=== PATIENT | male | born 1990 | race African-American/Black ===

== ENCOUNTER 2020-02-11 07:16 | Emergency (ER) | payer OTHER, SELFPAY ==
--- NOTE | ~2020-02-11 | XR_ITS ---
EXAMINATION: XR chest 2V 02/11/2020 07:50 INDICATION: Anxiety. Smoker. PROCEDURE: PA and lateral views of the chest COMPARISON: No prior studies for comparison. FINDINGS: The lungs are clear. The cardiomediastinal silhouette is within normal limits. There are no pleural effusions. There is no pneumothorax suspected. IMPRESSION: 1: NO ACUTE CARDIOPULMONARY DISEASE. Reviewed, dictated and finalized at location A. PACKER
--- NOTE | ~2020-02-11 | CT_ITS ---
EXAMINATION: CT BRAIN W/O DATE: 02/11/2020 07:49 INDICATION: Left-sided numbness TECHNIQUE: Computed tomography (CT) of the head was performed without intravenous contrast. The dose- length product was 605.33 mGy-cm. The mA was adjusted according to patient size. Iterative reconstruc tion technique was employed. COMPARISON: No prior studies for comparison. FINDINGS: Normal brain parenchymal volume for age. Normal slade-white differentiation. No acute intrac ranial hemorrhage, infarction, mass or mass effect. No ventriculomegaly or midline shift. Midline sagittal images demonstrate a normal corpus callosum, c raniovertebral junction and sella turcica. Basilar cisterns are patent. Paranasal sinuses and mastoids are pneumatized. No depressed skull fractures. IMPRESSION: 1. No acute intracranial abnormality. Reviewed, dictated and finalized at location A. HOUSE VAT WORKER
[2020-02-11 07:24] VITALS: BP 156/90; PULSE 82; RESP 18; TEMP 36.2; O2SAT 98
--- NOTE | 2020-02-11 07:33 | ECG_ITS ---
Measurements Intervals [place] Rate: 70 P: 50 MS: 130 QRS: 76 QRSD: 92 T: 22 QT: 372 QTc: 403 Interpretive Statements SINUS RHYTHM ST ELEVATION IN ANTEROLAT/HIGH LAT LEADS- PROBABLY EARLY REPOLARIZATION BORDERLINE ECG Electronically Signed On 02-11-2020 10:58:34 STUDIO COORDINATOR by Isaias Munoz D.O.
--- NOTE | 2020-02-11 07:33 | ED.ANXIETY ---
HPI - Anxiety General Chief Complaint: Anxiety Stated Complaint: Left Side Hurts, Numbness Time Seen by Provider: 02/11/20 07:33 Source: patient Mode of arrival: ambulatory Limitations: no limitations History of Present Illness HPI narrative: Patient is a 29-year-old male with a history of anxiety, depression who presents for evaluation of left-sided numbness. Patient states he was experiencing quite a bit of stress this morning, had decided to come to the emergency department for evaluation when he began to develop left-sided numbness throughout his body while he was driving. He reports the numbness sensation started in his brain and felt like a brain pop. Patient denied any vision changes, nausea, vomiting, difficulty with speech or difficulty with ambulation. He did not pass out. Patient denied any concurrent chest pain or shortness of breath. Patient states he does not have a history of numbness with his anxiety. Patient states he came into the lobby where he became increasingly panicked and then was brought back to the emergency department. Patient states the numbness lasted approximately 20 minutes in the left side of his body and is now completely resolved. He denies any other complaints at this time. Patient does endorse drinking alcohol nightly. Related Data Allergies Allergy/AdvReac Type Severity Reaction Status Date / Time amoxicillin Allergy Unknown Rash Verified 02/11/20 07:34 Review of Systems Review of Systems: Narrative: CONSTITUTIONAL: Denies fever, chills, or sweats. EYES: Denies visual changes, redness, or discharge. ENT: Denies rhinorrhea, congestion, sore throat, or otalgia. CARDIOVASCULAR: Denies chest pain, palpitations, or edema. RESPIRATORY: Denies cough or dyspnea. GASTROINTESTINAL: Denies abdominal pain, nausea, vomiting, or diarrhea. GENITOURINARY: Denies dysuria or hematuria. SKIN: Denies rash or itching. MUSCULOSKELETAL: Denies back pain, joint pain, or myalgia. NEUROLOGIC: Denies current headache, numbness, or weakness. PSYCHIATRIC: Reports anxiety and depression PMFSH Past Medical History Medical History Anxiety Depression Family History Family History (Updated 11/15/13 @ 07:13 by DOCTOR UNKNOWN) Father Family history of mental disorder Mother Family history of mental disorder Depression Social History Social History (Updated 02/11/20 @ 07:39 by Lynne Peterson MD) Smoking status: Never smoker Second hand tobacco smoke exposure: No Alcohol intake: current Substance use: current Substance use type: marijuana Gender identity (if verbalized by the patient): Male Exam Narrative: Exam Narrative: GENERAL: Awake, alert, conversant, anxious HEAD: Normocephalic, atraumatic. EYES: PERRLA and EOMI. ENT: Nares clear, no rhinorrhea or epistaxis. Mucous membranes moist. NECK: Supple. CHEST: No respiratory distress, breathing even and non labored HEART: Regular rate, sinus rhythm ABDOMEN:Non distended, non tender EXTREMITIES: Normal range of motion. No edema. SKIN: Warm, dry, no rash. NEURO:No focal deficits. Alert and oriented x3. Finger to nose intact bilaterally. EOMs intact without nystagmus. No facial droop/asymmetry noted bilaterally. Grimace intact. Intact sensation in face. Hearing intact bilaterally. Shoulder shrug intact. Strength 5/5 bilateral upper extremities. Strength 5/5 bilateral lower extremities. Reflexes 2+ patellar. Heel to marc intact bilaterally. No pronator drift. Ambulatory with a narrow base, steady gait, no ataxia. Course Vital Signs Vital signs: Vital Signs Temperature 36.2 C L 02/11/20 07:24 Pulse Rate 82 02/11/20 07:24 Respiratory Rate 18 02/11/20 07:24 Blood Pressure 156/90 H 02/11/20 07:24 Pulse Oximetry 98 02/11/20 07:24 Temperature 36.2 C L 02/11/20 07:24 Pulse Rate 73 02/11/20 08:46 Respiratory Rate 14 02/11/20 08:46 Blood Pressure 150/90 H
[2020-02-11 07:49] LABS: Basophils Percent Auto 0.6 % (0.2-1.2); Hemoglobin 16.5 g/dL (14.0-18.0); Immature Granulocyte Absolute 0.02 K/mm3 (0.00-0.031); Immature Granulocyte Percent A 0.3 % (0-0.5); Lymphocytes Percent Auto 21.1 % (18.3-44.2); Mean Corpuscular HGB Conc 34.4 g/dl (32-36); Mean Corpuscular Hemoglobin 30.1 pg (26-34); Mean Corpuscular Volume 87.4 fl (80-100); Mean Platelet Volume 11.2 fl (7.4-10.4); Monocytes Absolute Auto 0.5 K/mm3 (0.1-0.6); Monocytes Percent Auto 6.9 % (2.6-8.5); Neutrophils Absolute Auto 5.1 K/mm3 (1.3-6.7); Neutrophils Percent Auto 71.1 % (45.5-73.1); Platelet Count Result 199 k/mm3 (150-375); Red Blood Count 5.49 M/mm3 (4.6-6.20); Red Cell Distribution Width 13.1 % (11.5-14.5); White Blood Count 7.1 K/mm3 (4.5-10.0)
[2020-02-11] MEDS: SODIUM CHLORIDE 0.9% IV 1,000 ML 999 ML IV CONT (07:56)
[2020-02-11 08:00] LABS: INR 0.8
[2020-02-11 08:01] LABS: Partial Thromboplastin Time 25.2 SECONDS (22.3-36.8)
[2020-02-11 08:05] LABS: Anion Gap 13 mmol/L (8-16); Blood Urea Nitrogen 8 mg/dL (9-20); Calcium 9.6 mg/dL (8.4-10.2); Carbon Dioxide 24 mmol/L (22-30); Chloride 104 mmol/L (98-107); Estimated CRCL calculation 135 ml/min; Estimated Glomerular Filt Rate > 60; Glucose 130 mg/dL (75-110); Potassium 3.6 mmol/L (3.4-5.0); Sodium 141 mmol/L (137-145)
[2020-02-11 08:17] LABS: Troponin I < 0.012 ng/mL (0.000-0.034)
[2020-02-11 08:46] VITALS: BP 150/90; PULSE 73; RESP 14; O2SAT 100
[2020-02-11 09:27] VITALS: BP 133/90; PULSE 69; RESP 17; O2SAT 99
== END 2020-02-11 09:29 | disposition home or self-care (01) ==
PROVIDERS: Emergency Provider Emergency Medicine
DX: F41.9 Anxiety disorder, unspecified (principal); R20.2 Paresthesia of skin; R94.31 Abnormal electrocardiogram [ECG] [EKG]
CPT/HCPCS: 36415; 70450; 71046; 80048; 84484; 85025; 85610; 85730; 93005; 96360; 99284; J7030

== ENCOUNTER 2021-01-14 00:18 | Emergency (ER) | payer OTHER, SELFPAY ==
[2021-01-14 00:20] VITALS: BP 159/101; PULSE 100; RESP 20; TEMP 36.7; O2SAT 100
--- NOTE | 2021-01-14 00:41 | ED.ANXIETY ---
HPI - Anxiety General Chief Complaint: Anxiety Stated Complaint: dyspnea x 10 min Time Seen by Provider: 01/14/21 00:36 Source: patient Mode of arrival: ambulatory Limitations: no limitations History of Present Illness HPI narrative: Patient is a 40-year-old male complaining of anxiety attack described as tunnel vision accompanied by trouble breathing started prior to arrival. Patient states that he is feeling better now but still little anxious. Patient states that he has a history of anxiety. Patient denies any suicidal homicidal thoughts. Related Data Allergies Allergy/AdvReac Type Severity Reaction Status Date / Time amoxicillin Allergy Unknown Rash Verified 02/11/20 07:34 Review of Systems Review of Systems: All systems reviewed & are unremarkable except as noted in HPI and below Constitutional: Constitutional: Denies body ache(s), Denies chills, Denies excessive sweating, Denies fatigue, Denies fever(s), Denies headache(s), Denies lethargy, Denies malaise, Denies weakness and Denies weight loss Eyes: Eyes: Denies blurry vision, Denies change in vision and Denies loss of vision ENT: Denies dizziness, Denies ear discharge, Denies headache(s), Denies lip swelling, Denies epistaxis, Denies nasal congestion, Denies neck pain, Denies throat swelling and Denies tongue swelling Cardiovascular: Cardiovascular: Denies chest pain, Denies chest pain at rest, Denies chest pain with activity, Denies diaphoresis, Denies rapid heart rate, Denies edema, Denies irregular heart rhythm, Denies lightheadedness, Denies palpitations, Denies dyspnea and Denies dyspnea on exertion Respiratory: Respiratory: Denies chest congestion, Denies cough, Denies hemoptysis, Denies dyspnea and Denies dyspnea on exertion Gastrointestinal: Gastrointestinal: Denies abdominal pain, Denies melena, Denies hematochezia, Denies diarrhea, Denies nausea, Denies vomiting and Denies hematemesis Musculoskeletal: Musculoskeletal: Denies abnormal gait, Denies deformity, Denies joint swelling, Denies limited range of motion, Denies neck pain and Denies numbness Neurologic: Denies Abnormal speech present, Denies abnormal gait, Denies confusion, Denies dizziness, Denies headache(s), Denies focal weakness, Denies loss of vision, Denies numbness, Denies Other visual disturbances, Denies Sensory deficit (Neuro) and Denies weakness Psychiatric: Psychiatric: Denies confusion, Denies depression, Denies auditory hallucinations, Denies homicidal ideation and Denies suicidal ideation Endocrine: Endocrine: Denies cold intolerance, Denies excessive sweating, Denies fatigue, Denies heat intolerance and Denies palpitations Hematologic/Lymphatic: Hematologic/Lymphatic: Denies easy bleeding and Denies easy bruising Allergic/Immunologic: Allergic/Immunologic: Denies lip swelling, Denies throat swelling and Denies tongue swelling PMFSH Past Medical History Medical History Anxiety Depression Family History Family History Father Family history of mental disorder Mother Family history of mental disorder Depression Social History Social History Smoking status: Never smoker Second hand tobacco smoke exposure: No Alcohol intake: current Substance use: current Substance use type: marijuana Gender identity (if verbalized by the patient): Male Exam Const: General: cooperative, healthy appearing, comfortable, no acute distress, well developed, alert and awake; No confusion Orientation/consciousness: oriented to person, oriented to place, oriented to time, patient oriented x3 and No confusion Limitations: no limitations HENMT: Head: normal to inspection, normocephalic and atraumatic Ears: hearing grossly normal bilaterally, TM normal on the right and TM normal on the left General nose exam: Normal external no
[2021-01-14] MEDS: LORazepam (*CRX) 1 MG TABLET PO (00:53)
[2021-01-14 01:57] VITALS: BP 140/67; PULSE 70; RESP 16; O2SAT 100
== END 2021-01-14 01:58 | disposition home or self-care (01) ==
PROVIDERS: Emergency Provider Emergency Medicine
DX: F41.9 Anxiety disorder, unspecified (principal); F32.9 Major depressive disorder, single episode, unspecified
CPT/HCPCS: 99283; A9270

== ENCOUNTER 2021-01-30 19:30 | Emergency (ER) | payer OTHER, SELFPAY ==
[2021-01-30] VITALS (16 sets, daily range): BP systolic 125–146; BP diastolic 72–106; PULSE 67–85; RESP 12–16; TEMP 36.2–36.6; O2SAT 95–100
--- NOTE | ~2021-01-30 | CT_ITS ---
EXAMINATION: CT brain wo con EXAM DATE: 01/30/2021 20:24 INDICATION: seizure/ syncope. TECHNIQUE: Spiral CT of the head was performed without contrast. Axial, coronal and sagittal images were reviewed. The dose-length product (DLP) for this examination was 605.33 mGy-cm. The exposure w as tailored according to patient size, and iterative reconstruction (ASIR) was used as additional dos e reduction technique. Comparison is made to prior examination from 02/11/2020. FINDINGS: There is no acute intraparenchymal hemorrhage. No evidence of intraparenchymal brain mass lesion. No evidence of acute infarction. There is no mass effect or midline shift. The ventricles are normal in size. There are no extra-axial collections. There are no acute calvarial fractures. T he orbits are unremarkable. Soft tissue is unremarkable. The visualized sinuses and mastoid air anahy ls are well aerated. IMPRESSION: 1. Normal head CT examination. Reviewed, dictated and finalized at location A. TOP SPECIALIST
--- NOTE | ~2021-01-30 | XR_ITS ---
EXAMINATION: XR chest 1V portable EXAM DATE: 01/30/2021 20:13 INDICATION: Syncope, history of seizures. TECHNIQUE: Portable AP frontal chest x-ray was obtained. Comparison is made to prior examination from 02/11/2020. FINDINGS: The lungs are clear. There are no pleural effusions. The cardiomediastinal silhouette is within normal limits. There is no pneumothorax suspected. The bones and soft tissues are unremarkab le. IMPRESSION: No acute cardiopulmonary findings. Reviewed, dictated and finalized at location A. EAU ARCHITECT
--- NOTE | 2021-01-30 19:34 | ECG_ITS ---
Measurements Intervals [place] Rate: 70 P: 54 [place]: 141 QRS: 65 QRSD: 96 T: 31 QT: 395 QTc: 427 Interpretive Statements SINUS RHYTHM ST ELEVATIOIN IN ANTEROLAT/HIGH LAT LEADS- PROBABLY EARLY REPOLIARZATION ABNORMALITY BASELINE ARTIFACT- I, II, III, AVR, AVL, AVF, V1, V4-V6 BORDERLINE ECG Electronically Signed On 01-31-2021 6:53:29 BREWERY PUMPER by Isaias Munoz D.O.
[2021-01-30 20:14] LABS: Basophils Percent Auto 0.4 % (0.2-1.2); Eosinophils Absolute Auto 0.1 K/mm3 (0-0.3); Eosinophils Percent Auto 0.9 % (0-4.4); Hematocrit 43.8 % (42.0-52.0); Hemoglobin 14.9 g/dL (14.0-18.0); Immature Granulocyte Absolute 0.01 K/mm3 (0.00-0.031); Immature Granulocyte Percent A 0.1 % (0-0.5); Lymphocytes Absolute Auto 2.45 K/mm3 (0.9-3.2); Lymphocytes Percent Auto 36.3 % (18.3-44.2); Mean Corpuscular Hemoglobin 30.4 pg (26-34); Mean Corpuscular Volume 89.4 fl (80-100); Mean Platelet Volume 11.5 fl (7.4-10.4); Monocytes Absolute Auto 0.5 K/mm3 (0.1-0.6); Monocytes Percent Auto 7.9 % (2.6-8.5); Neutrophils Absolute Auto 3.7 K/mm3 (1.3-6.7); Neutrophils Percent Auto 54.4 % (45.5-73.1); Platelet Count Result 173 k/mm3 (150-375); White Blood Count 6.8 K/mm3 (4.5-10.0)
[2021-01-30 20:24] LABS: Anion Gap 7 mmol/L (8-16); Blood Urea Nitrogen 15 mg/dL (9-20); Calcium 9.1 mg/dL (8.4-10.2); Carbon Dioxide 27 mmol/L (22-30); Chloride 105 mmol/L (98-107); Estimated CRCL calculation 143 ml/min; Estimated Glomerular Filt Rate > 60; Glucose 92 mg/dL (65-110); Potassium 3.9 mmol/L (3.4-5.0); Sodium 139 mmol/L (137-145)
[2021-01-30 20:47] LABS: Alanine Aminotransferase 50 U/L (4-50); Albumin Level 4.4 g/dL (3.5-5.1); Alkaline Phosphatase 66 U/L (38-126); Aspartate Amino Transferase 37 U/L (17-59); Bilirubin,Total 0.7 mg/dL (0.2-1.3)
[2021-01-30 20:48] LABS: Creatine Kinase 408 U/L (55-170); Ethanol < 10 mg/dL (<10)
[2021-01-30 21:00] LABS: Troponin I < 0.012 ng/mL (0.000-0.034)
[2021-01-30 21:09] LABS: Add Urine Microscopic? YES; Appearance Urine Clear (Clear); Bilirubin Urine Negative (Negative); Blood Urine Negative (Negative); Color Urine Yellow (Yellow); Glucose Urine UA Negative (Negative); Ketones Urine 1+ mg/dL (Negative); Leukocyte Esterase Ur Negative LEU/UL (Negative); Mucus Urine Rare /lpf; Nitrate Urine Negative (Negative); Protein Urine Negative (Negative); Squamous Epithelial Cell Urine Rare /hpf (Few); Urobilinogen Urine Negative mg/dL (<2.0); WBC Urine 0-3 /hpf
[2021-01-30] MEDS: SODIUM CHLORIDE 0.9% IV 1,000 ML 999 ML IV CONT (21:10)
[2021-01-30 21:14] LABS: Amphetamine Screen Urine Negative (Negative); Barbiturate Screen Urine Negative (Negative); Benzodiazepines Screen Urine Negative (Negative); Cannabinoid Screen Urine Positive (Negative); Cocaine Screen Urine Negative (Negative); Methadone Screen Urine Negative (Negative); Opiate Screen Urine Negative (Negative); Phencyclidine Screen Urine Negative (Negative)
--- NOTE | 2021-01-30 21:30 | ED.GENADULT ---
HPI - General Adult General Chief complaint: Syncope Stated complaint: possible seizure or possible syncope Time Seen by Provider: 01/30/21 19:42 History of Present Illness HPI narrative: Patient 22-year-old gentleman who presents the emergency department with chief complaint of syncope versus seizure. Patient reports that he was at a gas station felt as though he was starting to get a little jerky over his entire body and then became unresponsive. Patient states he woke up on the ground denies injuries but states that he feels sore all over. Patient states he had no bowel or bladder dysfunction reports no confusion after he had been deteriorating patient reports no prior history of seizure reports no TBI history reports no illicit drug use. Related Data Allergies Allergy/AdvReac Type Severity Reaction Status Date / Time amoxicillin Allergy Unknown Rash Verified 02/11/20 07:34 Penicillins Allergy Unknown Unknown Verified 01/30/21 19:37 Review of Systems Review of Systems: A 10 system review of systems was completed on the patient and is negative except for what is stated in the HPI. Nursing and ancillary documentation was reviewed. PMFSH Past Medical History Medical History Anxiety Depression Family History Family History Father Family history of mental disorder Mother Family history of mental disorder Depression Social History Social History Smoking status: Never smoker Second hand tobacco smoke exposure: No Alcohol intake: current Substance use: current Substance use type: marijuana Gender identity (if verbalized by the patient): Male Exam Narrative: GENERAL: Well-appearing, well-nourished, and in no acute distress. HEAD: Normocephalic, atraumatic. EYES: PERRLA and EOMI. ENT: Nares clear, no rhinorrhea or epistaxis. Mucous membranes moist. NECK: Supple. CHEST: Clear to auscultation. No respiratory distress. HEART: Regular rate and rhythm. No murmur heard. Normal peripheral pulses. ABDOMEN: Soft, nontender, nondistended, normal active bowel sounds. EXTREMITIES: Normal range of motion. No edema. SKIN: Warm, dry, no rash. NEURO: No focal deficits. Alert and oriented x3. PSYCH: Normal mood and affect. Course Course Emergency Course: EKG is sinus rhythm rate of [address] elevation or ST depression Vital Signs Vital signs: Vital Signs Temperature 36.2 C L 01/30/21 19:28 Pulse Rate 72 01/30/21 19:28 Respiratory Rate 16 01/30/21 19:28 Blood Pressure 146/85 H 01/30/21 19:28 Pulse Oximetry 100 01/30/21 19:28 Temperature 36.2 C L 01/30/21 19:28 Pulse Rate 68 01/30/21 20:35 Respiratory Rate 14 01/30/21 20:35 Blood Pressure 125/72 01/30/21 20:06 Pulse Oximetry 98 01/30/21 20:35 Medical Decision Making Vital Signs Vital Signs: Vital Signs Temperature 36.2 C L 01/30/21 19:28 Pulse Rate 72 01/30/21 19:28 Respiratory Rate 16 01/30/21 19:28 Blood Pressure 146/85 H 01/30/21 19:28 Pulse Oximetry 100 01/30/21 19:28 Temperature 36.2 C L 01/30/21 19:28 Pulse Rate 68 01/30/21 20:35 Respiratory Rate 14 01/30/21 20:35 Blood Pressure 125/72 01/30/21 20:06 Pulse Oximetry 98 01/30/21 20:35 Lab Data Result diagrams: 01/30/21 20:02 01/30/21 20:02 Labs: Lab Results 01/30/21 01/30/21 01/30/21 Range/Units 20:02 20:02 20:15 WBC 6.8 (4.5-10.0) K/mm3 RBC 4.90 (4.6-6.20) M/mm3 Hgb 14.9 (14.0-18.0) g/dL Hct 43.8 (42.0-52.0) % MCV 89.4 (80-100) fl MCH 30.4 (26-34) pg MCHC 34.0 (32-36) g/dl RDW 13.0 (11.5-14.5) % Plt Count 173 (150-375) k/mm3 MPV 11.5 H (7.4-10.4) fl Immature Gran % (Auto) 0.1 (0-0.5) % Neut % (Auto) 54.4 (45.5-73.1) % Lymph % (Auto) 36.3
== END 2021-01-30 22:46 | disposition home or self-care (01) ==
PROVIDERS: Emergency Medicine; Emergency Provider Emergency Medicine
DX: R55 Syncope and collapse (principal); F41.9 Anxiety disorder, unspecified; F32.A Depression, unspecified; Z88.0 Allergy status to penicillin
CPT/HCPCS: 36415; 70450; 71045; 80048; 80076; 80307; 81001; 82550; 83605; 83735; 84484; 85025; 93005; 96360; 99284; J7030